=== PATIENT | male | born 1960 | race Caucasian/White ===

== ENCOUNTER 2017-01-17 15:47 | Emergency (ER) | payer BC ==
[2017-01-17 16:07] VITALS: BP 145/76
--- NOTE | 2017-01-17 16:23 | UC ---
Lower Extremity/Ankle HPI - HPI Summary HPI Summary: The patient comes in today for: 1. Right leg pain and numb toes Onset: He had pain initially in the heel of August of 2016. He did not see anyone for it. But, there has been pain in the calf and thigh and right buttocks in the last 4 weeks. Palliative/provocative: Soaking in hot tubs helps. He will have benefit when he is laying down. Quality: Throbbing and sharp Region: Right calf, thigh and right hip. Severity: 10/10 this morning. 8/10 now. Time: Constant. Associated symptoms: Fever/infections: None. History of cancer/unexpected weight loss: None. Bowel/bladder control: No problems. Coughing can make the pain worse. Treatment: He has treated himself with a medication which he can't remember the name. * - History of Current Complaint Chief Complaint: UCLowerExtremity Stated Complaint: RIGHT LEG,FOOT PAIN AND NUMBNESS Time Seen by Provider: 01/17/17 16:13 Hx Obtained From: Patient - Allergies/Home Medications Allergies/Adverse Reactions: Allergies Allergy/AdvReac Type Severity Reaction Status Date / Time No Known Allergies Allergy Verified 01/17/17 16:07 Home Medications: Home Medications [place]-3 Fatty Acids [[place] 3 1000 mg] 2 tab PO DAILY 01/17/17 [History Confirmed 01/17/17] Unknown Pain Reliever 2 tab PO Q8HR PRN 01/17/17 [History Confirmed 01/17/17] PMH/Surg Hx/FS Hx/Imm Hx Previously Healthy: Yes Endocrine History Of: Denies: Diabetes, Thyroid Disease, Hyperthyroidism, Hypothyroidism, Dyslipidemia Cardiovascular History Of: Denies: Cardiac Disorders, Hypertension, Pacemaker/ICD, Myocardial Infarction , Congestive Heart Failure, Atrial Fibrillation, Deep Vein Thrombosis, Bleeding Disorders Respiratory History Of: Denies: COPD, Asthma, Bronchitis, Pneumonia, Pulmonary Embolism GI/ History Of: Denies: Gastroesophageal Reflux, Ulcer, Gastrointestinal Bleed, Gall Bladder Disease, Kidney Stones, Diverticulitis, Renal Disease, Urosepsis Neurological History Of: Denies: TIA, CVA, Dementia, Seizures, Migraine Psychological History Of: Denies: Anxiety, Depression, Bipolar Disorder, Schizophrenia, Post Traumatic Stress Disorder Cancer History Of: Denies: Lung Cancer, Colorectal Cancer, Breast Cancer, Prostate Cancer, Cervical Cancer Other History Of: Negative For: HIV, Hepatitis B, Hepatitis C, Anticoagulant Therapy - Surgical History Surgical History: Yes Surgery Procedure, Year, and Place: LEFT KNEE SURGERY 1973 - Family History Known Family History: Negative: Cardiac Disease, Hypertension - Social History Occupation: Employed Full-time Alcohol Use: None Substance Use Type: None Smoking Status (MU): Never Smoked Tobacco Review of Systems Constitutional: Negative Skin: Negative Eyes: Negative ENT: Negative Respiratory: Negative Cardiovascular: Negative Gastrointestinal: Negative Genitourinary: Negative All Other Systems Reviewed And Are Negative: Yes Physical Exam Triage Information Reviewed: Yes Appearance: Well-Appearing, No Pain Distress, Well-Nourished, Other: - He has no psychomotor slowing or guarding. Vital Signs: Initial Vital Signs Temp 98.6 F 01/17/17 15:57 Pulse 62 01/17/17 15:57 Resp 16 01/17/17 15:57 BP 145/76 01/17/17 15:57 Pulse Ox 98 01/17/17 15:57 Vital Signs Reviewed: Yes Eyes: Positive: Conjunctiva Clear. Negative: Discharge ENT: Positive: Hearing grossly normal. Negative: Pharyngeal erythema, Nasal congestion, Nasal drainage, TM bulging, TM dull, TM red, Tonsillar swelling, Tonsillar exudate Dental: Negative: Gross Decay/Caries @, Dental Fracture @ Neck: Positive: Supple, Nontender, No Lymphadenopathy. Negative: Nuchal Rigidity Respiratory: Positive: Chest non-tender, Lungs clear, No respiratory distress, No accessory muscle use. Negative: Crackles, Rhonchi Cardiovascular: Positive: RRR, No Murmur Abdomen Description: Positive: Nontender, No Organomegaly, Soft. Negative: Distended, Guarding Musculoskeletal: Positive: Strength Intact, ROM Intact, No Edema, Other: - Back : He has no psychomotor slowing or guarding. He is able to get on the exam table without any hesitation or difficulty. He has no SLR bilaterally and there is no calf, popliteal or upper inner thigh tenderness to palpation. There is no tenderness along the ilio-tibial band or over the greater trochanteric bursa. DTR were 2+/2 x 2 for the patellar reflex, but the right Achilles tendon was 0/2. There was no atrophy of the musculature. He had no marked tenderness to firm palpation of the piriformis on the right. Flexing the right hip and internally rotating it did not make his leg pain worse. HE stated that he did not have any numbness of his foot at this time. Neurological: Positive: Alert, Muscle Tone Normal Psychological: Positive: Age Appropriate Behavior, Consolable Skin: Positive: rashes - He has a cluster or superficial varicose veins behind the right knee. Lower Extremity Course/Dx - Course Course Of Treatment: Patient was told that I'm not sure what is causing his right left pain. But did recommend that he take medication as needed and to follow up with his primary care provider. - Differential Dx/Diagnosis Provider Diagnoses: Right leg pain. Episodic numbness of the foot. Right piriformis syndrome Discharge - Discharge Plan Condition: Stable Disposition: HOME Patient Education Materials: Leg Pain (ED) Additional Instructions: Please take the medication as directed and see your primary care provider in a week to see how well you are doing. If you get worse please be seen sooner by us or the ER.
== END 2017-01-17 17:08 | disposition home or self-care (01) ==
LOC: UCCORT 15:47
DX: M79.604 Pain in right leg (principal); R20.0 Anesthesia of skin; G57.01 Lesion of sciatic nerve, right lower limb
CPT/HCPCS: 99202; G0463